=== PATIENT | male | born 1960 | race Caucasian/White ===

== ENCOUNTER 2018-05-21 11:50 | Day surgery (SDC) | payer BC ==
[2018-05-20 14:09] VITALS: BMI 29.9
[2018-05-21] MEDS ORDERED: Phenylephrine 2.5% Ophth Soln 5 ML BOT R EYE SCH (12:15)
[2018-05-21] MEDS ORDERED: Tropicamide 1% 15 ML BOTTLE OP SCH (12:15)
[2018-05-21] MEDS ORDERED: Midazolam HCl 2 mg/2 ml Vial ONE (13:02)
[2018-05-21] MEDS ORDERED: Fentanyl 100 MCG/2 ML VIAL ONE (13:02)
[2018-05-21] MEDS ORDERED: PROPOFOL 40 ML ONE (13:03)
[2018-05-21] MEDS ORDERED: Triamcinolone 40 MG/ML VIAL ONE (13:17)
[2018-05-21] MEDS ORDERED: Lidocaine 1% PF 5 ML VIAL ONE ×2 (13:17)
[2018-05-21] MEDS ORDERED: Lidocaine 4% PF 5 ML AMP ONE (13:17)
[2018-05-21] MEDS ORDERED: Ondansetron PF 4 MG/2 ML Vial ONE (13:17)
[2018-05-21] MEDS ORDERED: Maxitrol 0.1% Opth Oint 3.5 GM TUBE ONE (13:17)
[2018-05-21] MEDS ORDERED: Bupivacaine 0.75% 10 ML AMP ONE (13:17)
[2018-05-21] MEDS ORDERED: PROPOFOL 200 MG/20 ML VIAL ONE (13:17)
[2018-05-21] MEDS ORDERED: CEFAZOLIN 1 GM VIAL ONE (13:17)
--- NOTE | 2018-05-21 21:22 | OP ---
DATE OF PROCEDURE: 05/21/2018 PREOPERATIVE DIAGNOSIS: Dislocated intraocular lens. POSTOPERATIVE DIAGNOSIS: Dislocated intraocular lens. PROCEDURE PERFORMED: Intraocular lens repositioning of right eye. ANESTHESIA: General endotracheal anesthesia. COMPLICATIONS: None. DESCRIPTION OF PROCEDURE: The patient identified in the preoperative holding area. Appropriate informed consent for the planned surgical procedure on the right eye had been obtained. The patient was transported to the operative suite. Appropriate cardiopulmonary monitoring was established. General endotracheal anesthesia was obtained. Retrobulbar block was placed. The patient was prepped and draped in usual sterile manner for ophthalmic surgery on the right eye. Lid speculum placed in the right eye. A 25-gauge trocar was placed through the conjunctiva and sclera superotemporally, inferotemporally, and supranasally. Infusion line was placed inferotemporally. Light pipe vitreous cutter inserted to the eye. Intra-ocular lens was identified and the inferior haptic was grasped with a 25-gauge forceps. The haptic was impaled with a 9-0 Prolene suture and externalized via a 25-gauge needle with the opposite end of the suture was then placed through the ciliary sulcus and the ends were tied with the previously placed pocket. The procedure was replicated superiorly and sutures were tied just central to the intra-ocular lens. Trocars were removed. Sclerotomy was suture closed. Retrobulbar Kenalog and subconjunctival Ancef were was placed. Antibiotic ointment was placed. The eye was patched and shielded. The patient was taken to postoperative recovery unit in good condition, having suffered no immediate perioperative complications. The patient was instructed to keep the patch and shield on, avoid lifting or bending, and followup in the morning with Dr. Luu. Job ID: [id number]
== END 2018-05-21 15:37 | disposition home or self-care (01) ==
LOC: SDC 11:50
PROVIDERS: ATTEND Ophthalmology Retina Specialist
PROC: 08SJ3ZZ Reposition Right Lens, Percutaneous Approach (ICD-10-PCS; principal; 2018-05-21)
DX: T85.22XA Displacement of intraocular lens, initial encounter (principal)
CPT/HCPCS: J0690; J2001; J2250; J2405; J2704; J3010; J3301; J3490

== ENCOUNTER 2018-07-23 12:40 | Day surgery (SDC) | payer BC ==
[~2018-07-23 12:40] MED LIST: EPINEPHrine 0.3 MG in Ophthalmic Irrigation Solution 500 ML FS SCH; Fentanyl 100 MCG/2 ML VIAL ONE; Midazolam HCl 2 mg/2 ml Vial ONE
[2018-07-23] MEDS ORDERED: Cyclopentolate 1% Opth Drop 2 ML BOT ONE (13:22)
[2018-07-23] MEDS ORDERED: Phenylephrine 2.5% Ophth Soln 5 ML BOT ONE (13:22)
[2018-07-23] MEDS ORDERED: CEFAZOLIN 1 GM VIAL ONE (16:04)
[2018-07-23] MEDS ORDERED: Ondansetron PF 4 MG/2 ML Vial ONE (16:04)
[2018-07-23] MEDS ORDERED: Metoclopramide HCl 10 MG/2 ML VIAL ONE (16:04)
[2018-07-23] MEDS ORDERED: Maxitrol 0.1% Opth Oint 3.5 GM TUBE ONE (16:04)
[2018-07-23] MEDS ORDERED: PHENYLEPHRINE-NS 100 MCG/ML 10 ML SYRINGE ONE (16:04)
[2018-07-23] MEDS ORDERED: Triamcinolone 40 MG/ML VIAL ONE (16:04)
[2018-07-23] MEDS ORDERED: PROPOFOL 200 MG/20 ML VIAL ONE (16:04)
[2018-07-23] MEDS ORDERED: Lidocaine 1% PF 5 ML VIAL ONE ×2 (16:04)
[2018-07-23] MEDS ORDERED: Bupivacaine 0.75% 10 ML AMP ONE (16:04)
[2018-07-23] MEDS ORDERED: Lidocaine 4% PF 5 ML AMP ONE (16:04)
--- NOTE | 2018-07-23 22:40 | OP ---
DATE OF PROCEDURE: 07/23/2018 PREOPERATIVE DIAGNOSIS: Vitreous hemorrhage. POSTOPERATIVE DIAGNOSIS: Vitreous hemorrhage. PROCEDURE PERFORMED: Intraocular lens exchange, right eye. ANESTHESIA: General endotracheal anesthesia. DESCRIPTION OF PROCEDURE: The patient was identified in the preoperative holding area. Appropriate informed consent for the planned surgical procedure on the right eye had been obtained. The patient was transported to the operative suite, where appropriate cardiopulmonary monitoring was established. General endotracheal anesthesia was initiated. block was placed. The patient was prepped and draped in the usual sterile manner for ophthalmic surgery on the right eye. Lid speculum was placed in the right eye. 25-gauge trocars were placed supratemporally, inferotemporally, and supranasally. A 5 mm superior temporal frown incision was created. The previously sutured-in one piece intraocular lens was shifted into the anterior chamber, cut in half 14.5 diopter intraocular lens was folded and inserted into the eye, and the haptics were externalized using the anomaly technique. The scleral wounds were suture closed with 10-0 nylon suture, 7-0 Vicryl suture. Conjunctiva was closed with 6-0 plain gut suture. Retrobulbar Kenalog and subconjunctival Ancef were placed. Antibiotic ointment was placed. The eye was patched and shielded. The patient was awakened, taken to postoperative recovery unit in good condition, having suffered no immediate perioperative complications. The patient was instructed to keep patch and shield on, avoid lifting and bending. Followup appointment with Dr. Luu. Job ID: [id number]
== END 2018-07-23 17:30 | disposition home or self-care (01) ==
LOC: SDC 12:40
PROVIDERS: ATTEND Ophthalmology Retina Specialist
PROC: 08RJ3JZ Replacement of Right Lens with Synthetic Substitute, Percutaneous Approach (ICD-10-PCS; principal; 2018-07-23)
PROC: 08PJ3JZ Removal of Synthetic Substitute from Right Lens, Percutaneous Approach (ICD-10-PCS; principal; 2018-07-23)
DX: H43.11 Vitreous hemorrhage, right eye (principal); T85.22XA Displacement of intraocular lens, initial encounter; I10 Essential (primary) hypertension; E78.5 Hyperlipidemia, unspecified; K21.9 Gastro-esophageal reflux disease without esophagitis; Z96.1 Presence of intraocular lens; Z79.82 Long term (current) use of aspirin; Z79.899 Other long term (current) drug therapy
CPT/HCPCS: C1780; J0171; J0690; J2001; J2250; J2405; J2704; J2765; J3010; J3301; J3490

== ENCOUNTER 2020-06-28 15:29 | Outpatient (CLI) | payer BC ==
[2020-06-28 17:50] LABS: #Basophils 0.1 10x3/uL (0.0-0.2); #Eosinphils 0.4 10x3/uL (0.0-0.5); #Neutrophils 4.7 10x3/uL (1.5-8.4); %Basophils 0.6 % (0.0-2.0); %Eosinophils 4.7 % (0.0-6.0); %Lymphocytes 27.4 % (18.0-47.0); %Monocytes 11.3 % (0.0-10.0); %Neutrophils 55.8 % (40.0-75.0); Hemoglobin 13.7 g/dL (13.5-17.5); Mean Corpuscular HGB CONC 33.3 g/dL (32.0-36.0); Mean Corpuscular Hemoglobin 31.1 pg (27.0-33.0); Mean Corpuscular Volume 93.2 fl (81.2-95.1); Mean Platelet Volume 10.6 fl (7.4-10.4); Platelet Count 239 10x3/uL (150-450); RBC Distribution Width 12.3 % (11.5-14.5); Red Blood Cell (RBC) Count 4.41 10x6/uL (4.32-5.72); White Blood Cell (WBC) Count 8.4 10x3/uL (3.5-10.5)
[2020-06-28 18:31] LABS: INR-International Normal Ratio 0.9; Prothrombin Time 9.8 sec (9.5-12.1)
[2020-06-28 18:34] LABS: Anion Gap 13 mmol/L (10-20); BUN (Urea Nitrogen) 9 mg/dL (8.4-25.7); Calc. Creatinine Clearance 0 mL/min (70-130); Calcium 9.1 mg/dL (7.8-10.44); Carbon Dioxide 28 mmol/L (23-31); Chloride 95 mmol/L (98-107); Glucose 87 mg/dL (80-115); Potassium 3.4 mmol/L (3.5-5.1); Sodium 133 mmol/L (136-145)
[2020-06-28 18:39] LABS: Bilirubin Neg (Negative); Blood, Urine Negative (Negative); Glucose, Urine (Dipstick) Normal (Negative); Ketone, Urine Negative (Negative); Leukocyte 25 (Negative); Nitrite Negative (Negative); Protein, Urine (Dipstick) 15 mg/dl (Neg-Trace)
[2020-06-28 18:42] LABS: Clarity Clear (Clear)
[2020-06-28 18:56] LABS: Bacteria/HPF None Seen HPF (None Seen); RBC/HPF None Seen HPF (0-3); Squamous Epithelial None Seen HPF (0-3); WBC/HPF 0-3 HPF (0-3)
[2020-06-29 00:37] LABS: SARS-CoV-2 PCR by NAA Not Detected (NotDetected)
== END 2020-06-28 15:30 | disposition home or self-care (01) ==
LOC: LABBT 15:29
PROVIDERS: ATTEND Orthopaedic Surgery
DX: Z01.818 Encounter for other preprocedural examination (principal); Z20.822 Contact with and (suspected) exposure to COVID-19; M17.11 Unilateral primary osteoarthritis, right knee
CPT/HCPCS: 80048; 81001; 85025; 85610; 87081; 87635; 93005; 93010; U0003; U0005

== ENCOUNTER 2020-06-28 16:00 | Inpatient (IN) | payer BC ==
[2020-06-29 10:12] VITALS: BMI 31.4
[2020-07-03] MEDS ORDERED: diphenhydrAMINE 25 MG CAP PO PRN (07:08)
[2020-07-03] MEDS ORDERED: HYDROcodone/Acetaminophen 10/325 mg Tablet PO PRN ×3 (07:08→09:45)
[2020-07-03] MEDS ORDERED: traMADol HCl 50 MG TAB PO PRN ×3 (07:08→09:45)
[2020-07-03] MEDS ORDERED: Zolpidem Tartrate 5 MG TAB PO PRN ×2 (07:08→09:45)
[2020-07-03] MEDS ORDERED: Fentanyl 100 MCG/2 ML VIAL SLOW IVP PRN ×2 (07:08)
[2020-07-03] MEDS ORDERED: Promethazine HCl 25 MG/ML VIAL IM PRN ×2 (07:08→09:45)
[2020-07-03] MEDS ORDERED: Acetaminophen 325 MG TAB PO PRN (07:08)
[2020-07-03] MEDS ORDERED: Ondansetron PF 4 MG/2 ML Vial IVP PRN ×2 (07:08→09:45)
[2020-07-03] MEDS ORDERED: Tranexamic Acid 1,000 MG/10 ML VIAL ONE (07:31)
[2020-07-03] MEDS ORDERED: Sodium Chloride 0.9% 100 ML ONE (07:31)
[2020-07-03] MEDS ORDERED: Vancomycin 1.5 GRAM/300 ML BAG ONE (07:31)
[2020-07-03] MEDS ORDERED: Midazolam HCl 2 mg/2 ml Vial ONE (08:21)
[2020-07-03] MEDS ORDERED: Fentanyl 100 MCG/2 ML VIAL ONE ×4 (08:21→12:15)
[2020-07-03] MEDS ORDERED: VALSARTAN PO SCH (09:00)
[2020-07-03] MEDS ORDERED: Pantoprazole 40 MG GRANULES PACKET PO SCH (09:00)
[2020-07-03] MEDS ORDERED: Non-Formulary Item 1 EACH (Pantoprazole Sodium [Pantoprazole Sodium] 20 MG Tablet.Dr) PO SCH (09:00)
[2020-07-03] MEDS ORDERED: [UNRECOGNIZED DRUG - OTHER] PO SCH (09:00)
[2020-07-03] MEDS ORDERED: HYDROCHLOROTHIAZIDE PO SCH (09:00)
[2020-07-03] MEDS ORDERED: Bupivacaine HCl 0.5%/Epinephrine 1:200,000/PF 30 ml Vial ONE (09:36)
[2020-07-03] MEDS ORDERED: PROPOFOL 200 MG/20 ML VIAL ONE (09:36)
[2020-07-03] MEDS ORDERED: Ketorolac Tromethamine 30 MG/ML VIAL ONE (09:36)
[2020-07-03] MEDS ORDERED: Ropivacaine 2% HCl/PF (20 MG/10 ML VIAL) ONE (09:36)
[2020-07-03] MEDS ORDERED: Ondansetron PF 4 MG/2 ML Vial ONE (09:36)
[2020-07-03] MEDS ORDERED: Dexamethasone 20 MG/5 ML VIAL ONE (09:36)
[2020-07-03] MEDS ORDERED: Ropivacaine HCl/PF 250 ML in Premix Bag 1 BAG NERVE BLCK SCH (09:45)
[2020-07-03] MEDS ORDERED: Fentanyl 100 MCG/2 ML VIAL IV PRN (09:46)
[2020-07-03] MEDS: Aspirin 81 mg Enteric Coated Tablet PO SCH ×2 (13:49→20:08)
[2020-07-03] MEDS: Brimonidine Tartrate 0.2% Ophth Soln 5 ml Bottle R EYE SCH ×2 (13:50→20:12)
[2020-07-03] MEDS: Hydrochlorothiazide 25 MG TAB PO SCH (13:50)
[2020-07-03] MEDS: Ferrous Gluconate 324 MG TAB PO SCH ×2 (13:50→20:08)
[2020-07-03] MEDS: Multivitamin W/ Minerals 1 TAB PO SCH (13:50)
[2020-07-03] MEDS: Senokot S 8.6-50 MG TAB PO SCH (13:51)
[2020-07-03] MEDS: Timolol 0.5% Ophth Soln 5 ml Bottle R EYE SCH ×2 (13:51→20:08)
[2020-07-03] MEDS: Valsartan 80 MG TAB PO SCH (13:51)
[2020-07-03] MEDS: HYDROcodone/Acetaminophen 10/325 mg Tablet PO PRN ×2 (14:05→20:05)
[2020-07-03] MEDS: CEFAZOLIN 2 GM in Premix Bag 1 BAG IVPB SCH (16:50)
[2020-07-03] MEDS: Sodium Chloride 0.9% 1,000 ML IV SCH ×2 (16:51→18:22)
[2020-07-03] MEDS: Atorvastatin Calcium 20 MG TAB PO SCH (20:07)
[2020-07-04] MEDS: CEFAZOLIN 2 GM in Premix Bag 1 BAG IVPB SCH (00:24)
[2020-07-04] MEDS: Senokot S 8.6-50 MG TAB PO SCH ×3 (00:44→20:57)
[2020-07-04] MEDS: HYDROcodone/Acetaminophen 10/325 mg Tablet PO PRN ×4 (02:14→18:36)
[2020-07-04] MEDS: Sodium Chloride 0.9% 1,000 ML IV SCH ×2 (03:37→13:32)
[2020-07-04 05:18] LABS: Hemoglobin 10.3 g/dL (14.0-18.0); Mean Corpuscular HGB CONC 33.7 g/dL (32.0-36.0); Mean Corpuscular Hemoglobin 32.5 pg (27.0-31.0); Mean Corpuscular Volume 96.2 fL (78.0-98.0); Mean Platelet Volume 7.8 fL (7.4-10.4); Platelet Count 197 thou/uL (130-400); RBC Distribution Width 11.8 % (11.5-14.5); Red Blood Cell (RBC) Count 3.17 mill/uL (4.70-6.10); White Blood Cell (WBC) Count 10.9 thou/uL (4.8-10.8)
[2020-07-04] MEDS: Multivitamin W/ Minerals 1 TAB PO SCH (08:51)
[2020-07-04] MEDS: Aspirin 81 mg Enteric Coated Tablet PO SCH ×2 (08:51→20:57)
[2020-07-04] MEDS: Ferrous Gluconate 324 MG TAB PO SCH ×2 (08:51→20:58)
[2020-07-04] MEDS: Valsartan 80 MG TAB PO SCH (08:52)
[2020-07-04] MEDS: Hydrochlorothiazide 25 MG TAB PO SCH (08:52)
[2020-07-04] MEDS: Brimonidine Tartrate 0.2% Ophth Soln 5 ml Bottle R EYE SCH ×2 (08:53→20:58)
[2020-07-04] MEDS: Timolol 0.5% Ophth Soln 5 ml Bottle R EYE SCH ×2 (08:53→20:59)
[2020-07-04] MEDS: Atorvastatin Calcium 20 MG TAB PO SCH (20:58)
[2020-07-05] MEDS: Sodium Chloride 0.9% 1,000 ML IV SCH ×2 (00:43→10:25)
[2020-07-05 07:28] LABS: Hemoglobin 9.4 g/dL (14.0-18.0); Mean Corpuscular HGB CONC 34.1 g/dL (32.0-36.0); Mean Corpuscular Hemoglobin 32.4 pg (27.0-31.0); Mean Corpuscular Volume 95.2 fL (78.0-98.0); Mean Platelet Volume 7.7 fL (7.4-10.4); Platelet Count 183 thou/uL (130-400); RBC Distribution Width 11.6 % (11.5-14.5); Red Blood Cell (RBC) Count 2.91 mill/uL (4.70-6.10); White Blood Cell (WBC) Count 12.2 thou/uL (4.8-10.8)
[2020-07-05] MEDS: Senokot S 8.6-50 MG TAB PO SCH (08:18)
[2020-07-05] MEDS: Multivitamin W/ Minerals 1 TAB PO SCH (08:18)
[2020-07-05] MEDS: Ferrous Gluconate 324 MG TAB PO SCH (08:18)
[2020-07-05] MEDS: Aspirin 81 mg Enteric Coated Tablet PO SCH (08:19)
[2020-07-05] MEDS: Valsartan 80 MG TAB PO SCH (08:19)
[2020-07-05] MEDS: Brimonidine Tartrate 0.2% Ophth Soln 5 ml Bottle R EYE SCH (08:19)
[2020-07-05] MEDS: Hydrochlorothiazide 25 MG TAB PO SCH (08:19)
[2020-07-05] MEDS: Timolol 0.5% Ophth Soln 5 ml Bottle R EYE SCH (08:19)
[2020-07-05 11:47] VITALS: BP 118/66; TEMP 99
[2020-07-05] MEDS: HYDROcodone/Acetaminophen 10/325 mg Tablet PO PRN (14:28)
== END 2020-07-05 15:00 | disposition home or self-care (01) | DRG 470 ==
LOC: SURG A 07-03 07:03 → SJJU 07-03 13:32 → EDSTATUS 07-03 16:00
PROVIDERS: ADMIT Orthopaedic Surgery; ATTEND Orthopaedic Surgery
PROC: 0SRC0J9 Replacement of Right Knee Joint with Synthetic Substitute, Cemented, Open Approach (ICD-10-PCS; principal; 2020-07-03)
DX: M17.11 Unilateral primary osteoarthritis, right knee (principal); Z20.822 Contact with and (suspected) exposure to COVID-19; I10 Essential (primary) hypertension; E78.5 Hyperlipidemia, unspecified; Z86.010 Personal history of colon polyps; Z86.73 Personal history of transient ischemic attack (TIA), and cerebral infarction without residual deficits; Z79.899 Other long term (current) drug therapy
CPT/HCPCS: 36415; 85027; C1713; C1776; J0690; J1100; J1885; J2250; J2405; J2704; J2795; J3010; J3370; J3490

== ENCOUNTER 2021-10-17 13:53 | Outpatient (CLI) | payer BC ==
[~2021-10-17 13:53] MED LIST changes: -EPINEPHrine 0.3 MG in Ophthalmic Irrigation Solution 500 ML FS SCH; -Fentanyl 100 MCG/2 ML VIAL ONE; +Gadobenate Dimeglumine 529 MG/1 ML (20ML VIAL) ONE; -Midazolam HCl 2 mg/2 ml Vial ONE
== END 2021-10-17 13:54 | disposition home or self-care (01) ==
LOC: BICMRI 13:53
PROVIDERS: ATTEND Orthopaedic Surgery
DX: R22.32 Localized swelling, mass and lump, left upper limb (principal); M94.222 Chondromalacia, left elbow; S56.512A Strain of other extensor muscle, fascia and tendon at forearm level, left arm, initial encounter
CPT/HCPCS: 82565; A9577

== ENCOUNTER 2024-02-25 13:42 | Outpatient (CLI) | payer BC | END 2024-02-25 13:43 | disposition home or self-care (01) | LOC: MRI 13:42 | PROVIDERS: ATTEND Surgery | DX: M54.2 Cervicalgia (principal); M50.31 Other cervical disc degeneration, high cervical region; M50.321 Other cervical disc degeneration at C4-C5 level; M50.322 Other cervical disc degeneration at C5-C6 level; M50.323 Other cervical disc degeneration at C6-C7 level; M47.812 Spondylosis without myelopathy or radiculopathy, cervical region | CPT/HCPCS: 72050; 72141 ==